=== PATIENT | male | born 1955 | race Caucasian/White ===

== ENCOUNTER → 2016-11-20 | Outpatient (CLI) | payer MEDICAID ==
[2016-11-20 07:54] LABS: Basophils # (A) 0.1 k/uL (0-0.2); Basophils % (A) 2 %; CH 34.7; CHCM 33.1; Eosinophils # (A) 0.2 k/uL (0-0.7); Eosinophils % (A) 3 %; HCT 49.7 % (39.0-53.0); HDW 2.03; Luc # (Auto) 0.21; Luc % (Auto) 4; Lymphocytes # (A) 1.9 k/uL (1.0-4.8); Lymphocytes % (A) 35 %; MCHC 32.3 g/dL (31.0-37.0); MCV 105.3 fL (80.0-100.0); Macrocytosis Moderate; Mean Platelet Volume 8.3; Monocytes # (A) 0.5 k/uL (0-1.0); Monocytes % (A) 9 %; Neutrophils # (A) 2.6 k/uL (1.3-7.7); Neutrophils % (A) 47 %; RBC 4.72 m/uL (4.30-5.90); RDW 13.4 % (11.5-15.5); WBC 5.5 k/uL (3.8-10.6); WBC (Perox) 5.42
[2016-11-20 11:11] LABS: ALT 49 U/L (21-72); AST 39 U/L (17-59); Alkaline Phosphatase 34 U/L (38-126); Anion Gap 9 mmol/L; Blood Urea Nitrogen 9 mg/dL (9-20); Carbon Dioxide 31 mmol/L (22-30); Chloride 107 mmol/L (98-107); Cholesterol 196 mg/dL (<200); Glucose 97 mg/dL (74-99); HDL Cholesterol 52 mg/dL (40-60); Non-African American GFR(MDRD) >60 (>60 ml/min/1.73 sqM); Potassium 4.9 mmol/L (3.5-5.1); Sodium 147 mmol/L (137-145); Total Bilirubin 0.4 mg/dL (0.2-1.3); Total Protein 7.3 g/dL (6.3-8.2); Triglycerides 166 mg/dL (<150)
== END | disposition home or self-care (01) ==
LOC: LABWHC1 07:05
PROVIDERS: ATTEND Internal Medicine
DX: E78.5 Hyperlipidemia, unspecified (principal)
CPT/HCPCS: 84439; 80061; 80053; 84443; 85025; 36415; G0103

== ENCOUNTER 2017-05-29 18:52 | Inpatient (IN) | payer MEDICAID ==
--- NOTE | 2017-05-29 19:13 | ED ---
Chest Pain HPI - General Chief Complaint: Chest Pain Stated Complaint: Chest Pain Source: patient, family Mode of arrival: wheelchair Limitations: no limitations - History of Present Illness Initial Comments: This patient is 61-year-old man with history of COPD and recent pneumonia, who presents to be evaluated for intermittent chest pains and dyspnea. History comes from both the patient and his . The patient was treated for pneumonia approximately 2 weeks ago with a course of azithromycin, and he is also currently taking inhaled medications and approximate 20 mg of prednisone per day for his COPD. Over the past few days he has had intermittent substernal chest pains and he states today it was worse and radiating to his left upper extremity. The patient describes as a tightness and states it feels like his COPD, but he is not able to further characterize it well. He did take an albuterol treatment but states she is not feeling significantly better. He has not found other worsening or relieving factors. He also notes that he has developed increasing swelling of the bilateral lower extremities over the past few days. He is dyspneic and he has had some diaphoresis this evening. MD Complaint: chest pain -: days(s) Onset: during rest Pain Location: substernal Pain Radiation: LUE Severity: moderate Quality: tightness Consistency: intermittent Improves With: medication-other (Albuterol) Anginal Symptoms: diaphoresis, dyspnea Other Symptoms: cough - Related Data Home Medications Medication Instructions Recorded Confirmed Tamsulosin HCl [Tamsulosin HCl] 0.4 mg PO DAILY@1800 06/25/14 05/29/17 valACYclovir HCL [valACYclovir] 1,000 mg PO DAILY 06/25/14 05/29/17 Aspirin EC [Ecotrin Low Dose] 81 mg PO DAILY 05/29/17 05/29/17 Budesonide/Formoterol Fumarate 2 puff INHALATION RT-BID 05/29/17 05/29/17 [Symbicort 160-4.5 Mcg Inhaler] Ibuprofen [Motrin] 800 mg PO Q6HR PRN 05/29/17 05/29/17 Ipratropium-Albuterol Nebulize 3 ml INHALATION RT-Q4H PRN 05/29/17 05/29/17 [Duoneb 0.5 mg-3 mg/3 ml Soln] Montelukast [Singulair] 10 mg PO DAILY 05/29/17 05/29/17 predniSONE 20 mg PO DIRECTED PRN 05/29/17 05/29/17 Allergies Allergy/AdvReac Type Severity Reaction Status Date / Time bee stings Allergy Anaphylaxis Uncoded 05/29/17 23:17 Review of Systems ROS Statement: Those systems with pertinent positive or pertinent negative responses have been documented in the HPI. ROS Other: All systems not noted in ROS Statement are negative. Constitutional: Denies: fever, chills Respiratory: Reports: cough, dyspnea, wheezes Cardiovascular: Reports: chest pain, dyspnea on exertion, orthopnea, edema. Denies: syncope Gastrointestinal: Reports: other (Bloating). Denies: abdominal pain, nausea, vomiting, melena, hematochezia Genitourinary: Denies: dysuria, hematuria Musculoskeletal: Denies: back pain Skin: Denies: rash Neurological: Denies: headache, weakness, numbness Hematological/Lymphatic: Reports: other ("Factor V disorder"). Denies: easy bleeding EKG Findings - EKG Results: EKG: interpreted by DENIZ ROSA, sinus rhythm (Rate 68 bpm), normal axis, normal QRS, normal ST/T, no acute changes Past Medical History Past Medical History: Asthma, Blood Disorder, COPD, GERD/Reflux, Prostate Disorder Additional Past Medical History / Comment(s): factor 5 History of Any Multi-Drug Resistant Organisms: None Reported Past Surgical History: Orthopedic Surgery Past Psychological History: Depression Smoking Status: Current every day smoker Past Alcohol Use History: Abuse, Daily Past Drug Use History: None Reported General Exam Limitations: no limitations General appearance: in distress (Mild respiratory distress), obese Head exam: Present: atraumatic, normocephalic Eye exam: Present: normal appearance Respiratory exam: Present: respiratory distress (Mild tachypnea), wheezes. Absent: rales, rhonchi, stridor, accessory muscle use, decreased breath sounds Cardiovascular Exam: Present: regular rate, normal rhythm, normal heart sounds. Absent: systolic murmur, diastolic murmur, rubs, gallop GI/Abdominal exam: Present: soft. Absent: distended, tenderness, guarding, rebound, mass, pulsatile mass Extremities exam: Present: normal inspection, normal capillary refill, pedal edema (Patient has pitting edema to the mid tibial area bilaterally no calf tenderness or palpable cord. No Homans sign.). Absent: calf tenderness Back exam: Present: normal inspection. Absent: CVA tenderness (R), CVA tenderness (L) Neurological exam: Present: alert Skin exam: Present: warm, intact, normal color, diaphoretic (Mild). Absent: rash Course Vital Signs 05/29/17 05/29/17 05/29/17 18:56 19:51 19:56 Temperature 97.3 F L Pulse Rate 69 68 88 Pulse Rate [ Pulse Oximetery ] Respiratory 26 H 20 Rate Blood Pressure 191/88 153/74 Blood Pressure [Right Arm] O2 Sat by Pulse 92 L 98 Oximetry 05/29/17 05/29/17 05/29/17 20:06 20:46 21:20 Temperature Pulse Rate 88 85 Pulse Rate [ Pulse Oximetery ] Respiratory 18 Rate Blood Pressure 155/84 Blood Pressure [Right Arm] O2 Sat by Pulse 94 L 97 Oximetry 05/29/17 05/29/17 21:43 22:00 Temperature 97.2 F L 98.7 F Pulse Rate 79 Pulse Rate [ 83 Pulse Oximetery ] Respiratory 22 18 Rate Blood Pressure 146/85 Blood Pressure 141/83 [Right Arm] O2 Sat by Pulse 97 98 Oximetry Chest Pain MDM - MDM This patient is a 61-year-old man who is having dyspnea and chest pains. He is found to have a minimally elevated d-dimer, but he was not able to lie flat to tolerate the computed tomography scan. The patient does relate that he has not been able to sleep in a supine position for a year now, so this is not exactly new for him. We will admit the patient for further evaluation and treatment, including VQ scan. The patient is covered in the interim with Lovenox. Attempted to treat patient with levofloxacin but patient states had bilateral Achilles rupture with this medication the past. There is also question of penicillin reaction limiting Zosyn. Critical Care Time Critical Care Time: Yes (35 minutes) Disposition Clinical Impression: Chest pain, COPD exacerbation, Pneumonia, Elevated d-dimer Disposition: ADMITTED IP TO THIS HOSP Condition: Fair
[2017-05-29] MEDS ORDERED: IPRATROPIUM-ALBUTEROL 3 ML NEB INHALATION STA (19:19)
[2017-05-29] MEDS ORDERED: NITROGLYCERIN OINT 1 INCH/GM PACKET TOPICAL STA (19:20)
[2017-05-29] MEDS ORDERED: ASPIRIN 81 MG PO STA (19:21)
[2017-05-29 19:36] LABS: Basophils % (A) 1 %; CHCM 34.3; Eosinophils # (A) 0.1 k/uL (0-0.7); Eosinophils % (A) 1 %; HCT 49.1 % (39.0-53.0); HGB 16.4 gm/dL (13.0-17.5); Luc % (Auto) 2; Lymphocytes # (A) 0.7 k/uL (1.0-4.8); Lymphocytes % (A) 10 %; MCH 35.3 pg (25.0-35.0); MCHC 33.4 g/dL (31.0-37.0); MCV 105.5 fL (80.0-100.0); Macrocytosis Moderate; Mean Platelet Volume 8.5; Monocytes # (A) 0.4 k/uL (0-1.0); Monocytes % (A) 6 %; Neutrophils # (A) 5.4 k/uL (1.3-7.7); Neutrophils % (A) 82 %; RBC 4.65 m/uL (4.30-5.90); RDW 14.6 % (11.5-15.5); WBC 6.7 k/uL (3.8-10.6); WBC (Perox) 6.53
--- NOTE | 2017-05-29 19:48 | XR ---
EXAMINATION TYPE: XR chest 2V DATE OF EXAM: 05/29/2017 COMPARISON: 11/19/2016 HISTORY: Chest pain TECHNIQUE: Frontal and lateral views of the chest are obtained. FINDINGS: There is linear density in the right midlung. There is no heart failure. There is no sign of pleural effusion. There is also mild linear density at the left lung base. IMPRESSION: There is mild infiltrate and atelectasis in the right middle lobe and left lower lobe th at is mostly new compared to old exam. Normal heart.
[2017-05-29 19:56] LABS: ALT 55 U/L (21-72); AST 67 U/L (17-59); Alkaline Phosphatase 52 U/L (38-126); Anion Gap 12 mmol/L; Blood Urea Nitrogen 5 mg/dL (9-20); Calcium 9.4 mg/dL (8.4-10.2); Carbon Dioxide 22 mmol/L (22-30); Chloride 104 mmol/L (98-107); Glucose 109 mg/dL (74-99); Magnesium 1.8 mg/dL (1.6-2.3); Non-African American GFR(MDRD) >60 (>60 ml/min/1.73 sqM); Potassium 3.9 mmol/L (3.5-5.1); Sodium 138 mmol/L (137-145); Total Bilirubin 1.3 mg/dL (0.2-1.3); Total Protein 7.5 g/dL (6.3-8.2)
[2017-05-29] MEDS ORDERED: LEVOFLOXACIN 750MG-D5W PMX 750 MG in DEXTROSE/WATER 1 150ML.BAG IVPB STA (20:00)
[2017-05-29 20:07] LABS: Partial Thromboplastin Time 25.6 sec (22.0-30.0); Prothrombin Time 10.4 sec (9.0-12.0)
[2017-05-29] MEDS ORDERED: RX INFO: IV CONTRAST WAS GIVEN 1 EACH MISC MISCELLANE PRN (20:58)
[2017-05-29] MEDS ORDERED: PNEUMONIA PROTOCOL UTILIZED 1 EACH MISC PO PRN (21:20)
[2017-05-29] MEDS ORDERED: ALBUTEROL NEBULIZED 2.5 MG/3 ML INHALATION PRN (21:20)
[2017-05-29] MEDS ORDERED: ENOXAPARIN 150 MG/ML SYRINGE SQ STA (21:25)
[2017-05-29 22:40] VITALS: BMI 35.4
[2017-05-29] MEDS ORDERED: MORPHINE SULFATE 4 MG/ML SYRINGE IVP PRN (22:42)
[2017-05-29] MEDS ORDERED: ACETAMINOPHEN TAB 325 MG TAB PO PRN (22:43)
[2017-05-29] MEDS: SODIUM CHLORIDE 0.9% 1,000 ML IV SCH (23:04)
[2017-05-29] MEDS: AZITHROMYCIN 500 MG TAB PO SCH (23:04)
[2017-05-29] MEDS: ALPRAZolam 0.25 MG TAB PO PRN (23:05)
[2017-05-30] MEDS: IPRATROPIUM-ALBUTEROL 3 ML NEB INHALATION SCH ×4 (08:14→20:32)
[2017-05-30] MEDS: ENOXAPARIN 150 MG/ML SYRINGE SQ SCH ×2 (09:25→20:13)
--- NOTE | 2017-05-30 12:58 | P.CRDCN ---
History of Present Illness Consult date: 05/30/17 Reason for Consult (text): chest pain Chief complaint: shortness of breath, cough History of present illness: This is a pleasant 61-year-old gentleman with a history of COPD, smoking and recent pneumonia for which he was treated in a walk-in clinic with antibiotics and steroids. He does have a family history of a grandfather with coronary artery disease in his early 50s. Presented to the emergency department with complaints of increasing shortness of breath, cough, chest pain with coughing. He has also noticed some lower extremity edema at times. EKG shows normal sinus rhythm without ST-T wave abnormalities. Chest x-ray showed mild infiltrate and atelectasis in the right middle lobe and left lower lobe. Laboratory values showed troponin less than 0.0123, d-dimer 0.82 and a BNP of 128. He did have V/Q and a CT of the chest ordered that were unable to be completed due to his inability to lay flat due to shortness of breath. Upon examination, patient is resting comfortably in bed his head of bed is up. He continues to complain of shortness of breath and cough denies complaints of chest discomfort. Denies complaints of palpitations, dizziness or syncope. Past Medical History Past Medical History: Asthma, Blood Disorder, COPD, GERD/Reflux, Prostate Disorder Additional Past Medical History / Comment(s): factor 5 History of Any Multi-Drug Resistant Organisms: None Reported Past Surgical History: Orthopedic Surgery Additional Past Surgical History / Comment(s): Achilles x2, Past Anesthesia/Blood Transfusion Reactions: No Reported Reaction Past Psychological History: Depression Smoking Status: Current every day smoker Past Alcohol Use History: Abuse, Daily Past Drug Use History: None Reported Medications and Allergies Home Medications Medication Instructions Recorded Confirmed Type Tamsulosin HCl [Tamsulosin HCl] 0.4 mg PO DAILY@1800 06/25/14 05/29/17 History valACYclovir HCL [valACYclovir] 1,000 mg PO DAILY 06/25/14 05/29/17 History Aspirin EC [Ecotrin Low Dose] 81 mg PO DAILY 05/29/17 05/29/17 History Budesonide/Formoterol Fumarate 2 puff INHALATION RT-BID 05/29/17 05/29/17 History [Symbicort 160-4.5 Mcg Inhaler] Ibuprofen [Motrin] 800 mg PO Q6HR PRN 05/29/17 05/29/17 History Ipratropium-Albuterol Nebulize 3 ml INHALATION RT-Q4H PRN 05/29/17 05/29/17 History [Duoneb 0.5 mg-3 mg/3 ml Soln] Montelukast [Singulair] 10 mg PO DAILY 05/29/17 05/29/17 History predniSONE 20 mg PO DIRECTED PRN 05/29/17 05/29/17 History Allergies Allergy/AdvReac Type Severity Reaction Status Date / Time bee stings Allergy Anaphylaxis Uncoded 05/29/17 23:17 Physical Exam Vitals: Vital Signs Temp Pulse Pulse Resp BP BP Pulse Ox 05/30/17 12:00 79 18 155/87 95 05/30/17 11:29 72 05/30/17 11:16 65 05/30/17 08:26 86 05/30/17 08:17 80 96 05/30/17 08:00 97 F L 73 21 153/89 95 05/30/17 04:00 97.7 F 80 20 153/78 96 05/30/17 03:11 78 05/30/17 03:01 74 05/30/17 00:00 97.2 F L 84 20 141/83 97 05/29/17 22:06 98.7 F 79 18 146/85 98 05/29/17 22:00 98.7 F 79 18 146/85 98 05/29/17 21:43 97.2 F L 83 22 141/83 97 05/29/17 21:20 97 05/29/17 20:46 85 18 155/84 94 L 05/29/17 20:06 88 05/29/17 19:56 88 05/29/17 19:51 68 20 153/74 98 05/29/17 18:56 97.3 F L 69 26 H 191/88 92 L Intake and Output 05/29/17 05/30/17 05/30/17 22:59 06:59 14:59 Intake Total 240 760 Balance 240 760 Intake: Intake, IV Titration 160 Amount Sodium Chloride 0.9% 1, 160 000 ml @ 20 mls/hr IV . Q24H [facility] Rx#:[id number] Oral 240 600 Other: Voiding Method Toilet Urinal # Voids 1 1 # Bowel Movements 1 1 Weight 142.882 kg 147.8 kg PHYSICAL EXAMINATION: HEENT: Head is atraumatic, normocephalic. Pupils equal, round. Neck is supple. There is no elevated jugular venous pressure. HEART EXAMINATION: Heart sounds regular, S1 and S2 normal. No murmur or gallop heard. CHEST EXAMINATION: Lungs reveal diminished air entry with scattered rhonchi that clear with cough. No chest wall tenderness is noted on palpation or with deep breathing. ABDOMEN: Soft, nontender. Bowel sounds are heard. No organomegaly noted. EXTREMITIES: 2+ peripheral pulses with no evidence of peripheral edema and no calf tenderness noted. NEUROLOGIC patient is awake, alert and oriented x3. . Results 05/29/17 19:00 05/29/17 19:00 Cardiac Enzymes 05/29/17 05/29/17 05/30/17 Range/Units 19:00 19:00 04:11 AST 67 H (17-59) U/L Troponin I <0.012 <0.012 (0.000-0.034) ng/mL 05/30/17 Range/Units 10:33 AST (17-59) U/L Troponin I <0.012 (0.000-0.034) ng/mL Coagulation 05/29/17 Range/Units 19:00 PT 10.4 (9.0-12.0) sec APTT 25.6 (22.0-30.0) sec CBC 05/29/17 Range/Units 19:00 WBC 6.7 (3.8-10.6) k/uL RBC 4.65 (4.30-5.90) m/uL Hgb 16.4 (13.0-17.5) gm/dL Hct 49.1 (39.0-53.0) % Plt Count 161 (150-450) k/uL Comprehensive Metabolic Panel 05/29/17 Range/Units 19:00 Sodium 138 (137-145) mmol/L Potassium 3.9 (3.5-5.1) mmol/L Chloride 104 (98-107) mmol/L Carbon Dioxide 22 (22-30) mmol/L BUN 5 L (9-20) mg/dL Creatinine 0.50 L (0.66-1.25) mg/dL Glucose 109 H (74-99) mg/dL Calcium 9.4 (8.4-10.2) mg/dL AST 67 H (17-59) U/L ALT 55 (21-72) U/L Alkaline Phosphatase 52 (38-126) U/L Total Protein 7.5 (6.3-8.2) g/dL Albumin 4.4 (3.5-5.0) g/dL Current Medications Generic Name Dose Route Start Last Admin Trade Name Freq PRN Reason Stop Dose Admin Acetaminophen 650 mg 05/29/17 22:43 Tylenol Tab PO Q6HR PRN Mild to Moderate Pain Albuterol Sulfate 2.5 mg 05/29/17 21:20 05/30/17 03:01 Ventolin Nebulized INHALATION 2.5 mg RT-Q4H PRN Administration Shortness Of Breath Or Wheezing Albuterol/Ipratropium 3 ml 05/30/17 08:00 05/30/17 11:15 Duoneb 0.5 Mg-3 Mg/3 Ml Soln INHALATION 3 ml RT-QID JONA Administration Alprazolam 0.25 mg 05/29/17 22:41 05/29/17 23:05 Xanax PO 0.25 mg Q6H PRN Administration Anxiety Azithromycin 500 mg 05/29/17 22:15 05/29/17 23:04 Zithromax PO 500 mg HS JONA Administration Enoxaparin Sodium 140 mg 05/30/17 09:00 05/30/17 09:25 Lovenox SQ 140 mg Q12HR JONA Administration Ceftriaxone Sodium 1,000 mg/ 50 mls @ 100 mls/hr 05/30/17 12:00 Sodium Chloride IVPB 06/02/17 14:00 Q24HR@1200 JONA Sodium Chloride 1,000 mls @ 20 mls/hr 05/29/17 21:30 05/29/17 23:04 Saline 0.9% IV 20 mls/hr .Q24H JONA Administration Miscellaneous Information 1 each 05/29/17 20:58 Rx Info: Iv Contrast Was Given MISCELLANE 05/31/17 20:58 DAILY PRN Per Protocol Miscellaneous Information 1 each 05/29/17 21:20 Pneumonia Protocol Utilized PO ONCE PRN Per Protocol Morphine Sulfate 4 mg 05/29/17 22:42 Morphine Sulfate (Inj) IVP Q4HR PRN Moderate to Severe Pain Intake and Output 05/29/17 05/30/17 05/30/17 22:59 06:59 14:59 Intake Total 240 760 Balance 240 760 Intake: Intake, IV Titration 160 Amount Sodium Chloride 0.9% 1, 160 000 ml @ 20 mls/hr IV . Q24H [facility] Rx#:[id number] Oral 240 600 Other: Voiding Method Toilet Urinal # Voids 1 1 # Bowel Movements 1 1 Weight 142.882 kg 147.8 kg 05/29/17 19:00 05/29/17 19:00 EKG Interpretations (text) Sinus rhythm Assessment and Plan Plan: Assessment and plan #1 COPD with recent pneumonia #2 nicotine dependence #3 chest pain with coughing #4 lower extremity edema #5 family history of coronary artery disease From cardiology perspective, we'll obtain a 2-D echo with Doppler patient's symptoms are likely pulmonary in origin. Due to his family history and risk factors of being a current smoker we will likely schedule the patient for an outpatient stress test to be done later date once his respiratory status has improved. We will continue to follow the patient with you during this admission and provide further recommendations accordingly. INSULATION HOSEMAN note has been reviewed, I agree with a documented findings and plan of care. Patient was seen and examined.
--- NOTE | 2017-05-30 13:14 | P.CNPUL ---
History of Present Illness Consult date: 05/30/17 Reason for consult: dyspnea, COPD History of present illness: A 61-year-old male patient with known history of bronchial asthma and COPD who presented to the hospital yesterday because of worsening shortness of breath, chest tightness and wheezing and he has failed outpatient treatment. The patient symptoms started approximately 3 weeks ago and he went to a walk-in clinic where he was given diagnosis of pneumonia and he was given a combination of antibiotics and steroids. He improved over her condition progressively got worse and he came into the hospital for the same symptoms of increased dyspnea chest tightness and wheezing. No angina. No pleurisy. No hemoptysis. Some edema in his lower extremities bilaterally. His BNP level was nonelevated. Troponin 2 has been negative. D-dimer was negative. His chest x-ray shows some limited atelectatic changes in the right midlung area and some atelectasis in the left lower lobe area. Cardiac structures were within normal limits. He is feeling better. He is currently on a combination of DuoNeb neb last treatment [id number], oral Zithromax, IV Rocephin. He needs to be started also on IV Solu Medrol. He was given Lovenox therapeutic dose 140 mg subcu every 12 hours. I think this was initiated due to concern of pulmonary embolism. Note that this patient was on Advair in the past. During a recent urgent care visitation the patient was switched to Symbicort. He has pro-air which hardly uses at home. His albuterol neb last 2 minutes use on an as- needed basis. He smokes one pack of cigarette a day and complications 45-pack- year smoking history. He is father of complications of pulmonary fibrosis. No previous history of DVT or pulmonary embolism. No other complaints otherwise for now. Review of Systems Constitutional: Reports weight gain Eyes: denies blurred vision, denies bulging eye, denies decreased vision Ears: deny: decreased hearing, ear discharge, earache, tinnitus Ears, nose, mouth and throat: Denies headache, Denies sore throat Cardiovascular: Reports decreased exercise tolerance, Reports dyspnea on exertion, Reports shortness of breath Respiratory: Reports dyspnea, Reports wheezing Gastrointestinal: Denies abdominal pain, Denies diarrhea, Denies nausea, Denies vomiting Genitourinary: Reports as per HPI Musculoskeletal: Reports as per HPI Musculoskeletal: absent: ankle pain, ankle stiffness, ankle swelling, as per HPI Integumentary: Denies pruritus, Denies rash Neurological: Denies numbness, Denies weakness Psychiatric: Denies anxiety, Denies depression Endocrine: Denies fatigue, Denies weight change Past Medical History Past Medical History: Asthma, Blood Disorder, COPD, GERD/Reflux, Prostate Disorder Additional Past Medical History / Comment(s): factor 5 Leyden, COPD, asthma, BPH , obesity History of Any Multi-Drug Resistant Organisms: None Reported Past Surgical History: Orthopedic Surgery Additional Past Surgical History / Comment(s): Achilles x2, bilateral knee surgery, better shoulder surgery, right inguinal hernia repair Past Anesthesia/Blood Transfusion Reactions: No Reported Reaction Past Psychological History: Depression Smoking Status: Current every day smoker Past Alcohol Use History: Abuse, Daily Past Drug Use History: None Reported Medications and Allergies Home Medications Medication Instructions Recorded Confirmed Type Tamsulosin HCl [Tamsulosin HCl] 0.4 mg PO DAILY@1800 06/25/14 05/29/17 History valACYclovir HCL [valACYclovir] 1,000 mg PO DAILY 06/25/14 05/29/17 History Aspirin EC [Ecotrin Low Dose] 81 mg PO DAILY 05/29/17 05/29/17 History Budesonide/Formoterol Fumarate 2 puff INHALATION RT-BID 05/29/17 05/29/17 History [Symbicort 160-4.5 Mcg Inhaler] Ibuprofen [Motrin] 800 mg PO Q6HR PRN 05/29/17 05/29/17 History Ipratropium-Albuterol Nebulize 3 ml INHALATION RT-Q4H PRN 05/29/17 05/29/17 History [Duoneb 0.5 mg-3 mg/3 ml Soln] Montelukast [Singulair] 10 mg PO DAILY 05/29/17 05/29/17 History predniSONE 20 mg PO DIRECTED PRN 05/29/17 05/29/17 History Allergies Allergy/AdvReac Type Severity Reaction Status Date / Time bee stings Allergy Anaphylaxis Uncoded 05/29/17 23:17 Physical Exam Vitals: Vital Signs Temp Pulse Pulse Resp BP BP Pulse Ox 05/30/17 12:00 79 18 155/87 95 05/30/17 11:29 72 05/30/17 11:16 65 05/30/17 08:26 86 05/30/17 08:17 80 96 05/30/17 08:00 97 F L 73 21 153/89 95 05/30/17 04:00 97.7 F 80 20 153/78 96 05/30/17 03:11 78 05/30/17 03:01 74 05/30/17 00:00 97.2 F L 84 20 141/83 97 05/29/17 22:06 98.7 F 79 18 146/85 98 05/29/17 22:00 98.7 F 79 18 146/85 98 05/29/17 21:43 97.2 F L 83 22 141/83 97 05/29/17 21:20 97 05/29/17 20:46 85 18 155/84 94 L 05/29/17 20:06 88 05/29/17 19:56 88 05/29/17 19:51 68 20 153/74 98 05/29/17 18:56 97.3 F L 69 26 H 191/88 92 L Intake and Output 05/29/17 05/30/17 05/30/17 22:59 06:59 14:59 Intake Total 240 760 Balance 240 760 Intake: Intake, IV Titration 160 Amount Sodium Chloride 0.9% 1, 160 000 ml @ 20 mls/hr IV . Q24H [facility] Rx#:[id number] Oral 240 600 Other: Voiding Method Toilet Urinal # Voids 1 1 # Bowel Movements 1 1 Weight 142.882 kg 147.8 kg Head exam was generally normal. There was no scleral icterus or corneal arcus. Mucous membranes were moist. Neck is short and supple and the patient is a Mallampati class IV. No goiter neck masses. Lungs sounds are diminished and there is scattered expiratory wheezes throughout the lung holley bilaterally.Cardiac exam revealed the PMI to be normally situated and sized. The rhythm was regular and no extrasystoles were noted during several minutes of auscultation. The first and second heart sounds were normal and physiologic splitting of the second heart sound was noted. There were no murmurs, rubs, clicks, or gallops. Abdomen soft nontender. No organomegaly. No direct tenderness rebound tensile guarding. Extremities show ankle edema bilaterally otherwise no leg edema. No cyanosis or clubbing at this point. Neurologically is awake 3 and there is no focal neurological deficits. Results - Laboratory Findings CBC and BMP: 05/29/17 19:00 05/29/17 19:00 PT/INR, D-dimer PT 10.4 sec (9.0-12.0) 05/29/17 19:00 INR 1.0 (<1.2) 05/29/17 19:00 D-Dimer 0.82 mg/L FEU (<0.60) H 05/29/17 19:00 Abnormal lab findings: Abnormal Labs 05/29/17 05/29/17 05/29/17 19:00 19:00 19:00 MCV 105.5 H MCH 35.3 H Lymphocytes # 0.7 L D-Dimer 0.82 H BUN 5 L Creatinine 0.50 L Glucose 109 H AST 67 H - Diagnostic Findings Chest x-ray: image reviewed Assessment and Plan Plan: Assessment 1 dyspnea on the basis of an acute COPD exacerbation. There may be an underlying asthmatic disease in addition. Chest x-ray showing atelectatic changes in the right midlung in the left lower lobe. CT angios the chest will be done to rule out pulmonary embolism especially with his history of factor V Leyden. 2 obesity 3 smoker 4 BPH 5 limited edema of the lower extremities. Plan continue DuoNeb nebulized treatments [id number]. Continue Zithromax. 2 and IV Rocephin. IV Solu-Medrol. CT angios the chest. We'll continue to follow. Will drop the Lovenox prophylactic dose if the CT angios the chest is negative for pulmonary embolism.
[2017-05-30] MEDS ORDERED: methylPREDNISolone SOD SUCCI 125 MG/2 ML VIAL IV SCH (13:15)
[2017-05-30] MEDS: IBUPROFEN 400 MG TAB PO PRN ×2 (14:26→20:22)
[2017-05-30] MEDS: valACYclovir HCL 1,000 MG TABLET PO SCH (14:27)
[2017-05-30] MEDS: MONTELUKAST 10 MG TAB PO SCH (14:27)
[2017-05-30] MEDS: ASPIRIN 81 MG PO SCH (14:27)
--- NOTE | 2017-05-30 16:55 | US ---
EXAMINATION TYPE: US venous doppler duplex LE BI DATE OF EXAM: 05/30/2017 3:19 PM COMPARISON: NONE CLINICAL HISTORY: 61-year-old male elevated d-dimer. Shortness of breath, factor 5 clotting disorder per patient SIDE PERFORMED: Bilateral TECHNIQUE: The lower extremity deep venous system is examined utilizing real time linear array sonog angy with graded compression, doppler sonography and color-flow sonography. FINDINGS: VESSELS IMAGED: External Iliac Vein (EIV) Common Femoral Vein Deep Femoral Vein Greater Saphenous Vein * Femoral Vein Popliteal Vein Proximal Calf Veins Posterior tibial veins (* superficial vessels) Right Leg: Negative for DVT Left Leg: Negative for DVT IMPRESSION: No evidence for DVT within the bilateral lower extremities.
--- NOTE | 2017-05-30 16:56 | P.HPIM ---
History of Present Illness 61-year-old gentleman came in with comments of shortness of breath has been going on for about 3-4 days patient has seemed patient was recently treated for pneumonia. Patient still has some residual infiltrate from his previous pneumonia although patient denied any fever chills. When I examined the patient patient lungs are clear apparently patient was wheezing and his breathing treatment. And the patient has mildly elevated d-dimer and patient does have history of factor V Leyden deficiency and he was told he doesn't need any anticoagulation. Because of mildly elevated d-dimer and shortness of breath along with some tachycardia and patient also had some chest pain which worsens with cough, no one rule out pulmonary embolism but patient is unable to flat, because of which we're unable gotten a CAT scan of the chest. Patient is undergoing bilateral lower limb Doppler along with echocardiogram if they're negative patient's anti-coagulation dose of Lovenox will be switched to prophylactic dose of Lovenox. Patient shortness of breath she significantly improved patient doesn't use any onset at home. Patient does not appear to have any new pneumonia at this point of time although patient is on broad- spectrum antibiotics treating for pneumonia and pulmonology recommended continuing those medications until we get the whole picture. Has [id number] history of smoking quit smoking about a week ago. Review of Systems REVIEW OF SYSTEMS: CONSTITUTIONAL: No fever, no malaise, no fatigue. HEENT: No recent visual problems or hearing problems. Denied any sore throat. CARDIOVASCULAR: No chest pain, orthopnea, PND, no palpitations, no syncope. PULMONARY: As mentioned in HPI GASTROINTESTINAL: No diarrhea, no nausea, no vomiting, no abdominal pain. Normoactive bowel sounds. NEUROLOGICAL: No headaches, no weakness, no numbness. HEMATOLOGICAL: Denies any bleeding or petechiae. GENITOURINARY: Denies any burning micturition, frequency, or urgency. MUSCULOSKELETAL/RHEUMATOLOGICAL: Denies any joint pain, swelling, or any muscle pain. ENDOCRINE: Denies any polyuria or polydipsia. The rest of the 14-point review of systems is negative. Past Medical History Past Medical History: Asthma, Blood Disorder, COPD, GERD/Reflux, Prostate Disorder Additional Past Medical History / Comment(s): factor 5 Leyden, COPD, asthma, BPH , obesity History of Any Multi-Drug Resistant Organisms: None Reported Past Surgical History: Orthopedic Surgery Additional Past Surgical History / Comment(s): Achilles x2, bilateral knee surgery, better shoulder surgery, right inguinal hernia repair Past Anesthesia/Blood Transfusion Reactions: No Reported Reaction Past Psychological History: Depression Smoking Status: Current every day smoker Past Alcohol Use History: Abuse, Daily Past Drug Use History: None Reported Medications and Allergies Home Medications Medication Instructions Recorded Confirmed Type Tamsulosin HCl [Tamsulosin HCl] 0.4 mg PO DAILY@1800 06/25/14 05/29/17 History valACYclovir HCL [valACYclovir] 1,000 mg PO DAILY 06/25/14 05/29/17 History Aspirin EC [Ecotrin Low Dose] 81 mg PO DAILY 05/29/17 05/29/17 History Budesonide/Formoterol Fumarate 2 puff INHALATION RT-BID 05/29/17 05/29/17 History [Symbicort 160-4.5 Mcg Inhaler] Ibuprofen [Motrin] 800 mg PO Q6HR PRN 05/29/17 05/29/17 History Ipratropium-Albuterol Nebulize 3 ml INHALATION RT-Q4H PRN 05/29/17 05/29/17 History [Duoneb 0.5 mg-3 mg/3 ml Soln] Montelukast [Singulair] 10 mg PO DAILY 05/29/17 05/29/17 History predniSONE 20 mg PO DIRECTED PRN 05/29/17 05/29/17 History Allergies Allergy/AdvReac Type Severity Reaction Status Date / Time bee stings Allergy Anaphylaxis Uncoded 05/29/17 23:17 Physical Exam Vitals: Vital Signs Temp Pulse Pulse Resp BP BP Pulse Ox 05/30/17 16:04 76 05/30/17 15:54 74 05/30/17 12:00 79 18 155/87 95 05/30/17 11:29 72 05/30/17 11:16 65 05/30/17 08:26 86 05/30/17 08:17 80 96 05/30/17 08:00 97 F L 73 21 153/89 95 05/30/17 04:00 97.7 F 80 20 153/78 96 05/30/17 03:11 78 05/30/17 03:01 74 05/30/17 00:00 97.2 F L 84 20 141/83 97 05/29/17 22:06 98.7 F 79 18 146/85 98 05/29/17 22:00 98.7 F 79 18 146/85 98 05/29/17 21:43 97.2 F L 83 22 141/83 97 05/29/17 21:20 97 05/29/17 20:46 85 18 155/84 94 L 05/29/17 20:06 88 05/29/17 19:56 88 05/29/17 19:51 68 20 153/74 98 05/29/17 18:56 97.3 F L 69 26 H 191/88 92 L Intake and Output 05/30/17 05/30/17 05/30/17 06:59 14:59 22:59 Intake Total 760 Balance 760 Intake: Intake, IV Titration 160 Amount Sodium Chloride 0.9% 1, 160 000 ml @ 20 mls/hr IV . Q24H [facility] Rx#:[id number] Oral 600 Other: Voiding Method Toilet Urinal # Voids 1 2 # Bowel Movements 1 Weight 147.8 kg PHYSICAL EXAMINATION: GENERAL: The patient is alert and oriented x3, not in any acute distress. Well developed, well nourished. Obese HEENT: Pupils are round and equally reacting to light. EOMI. No scleral icterus. No conjunctival pallor. Normocephalic, atraumatic. No pharyngeal erythema. No thyromegaly. CARDIOVASCULAR: S1 and S2 present. No murmurs, rubs, or gallops. PULMONARY: Chest is clear to auscultation, no wheezing or crackles. ABDOMEN: Soft, nontender, nondistended, normoactive bowel sounds. No palpable organomegaly. MUSCULOSKELETAL: No joint swelling or deformity. EXTREMITIES: No cyanosis, clubbing, or pedal edema. NEUROLOGICAL: Gross neurological examination did not reveal any focal deficits. SKIN: No rashes. Results CBC & Chem 7: 05/29/17 19:00 05/29/17 19:00 Labs: Abnormal Lab Results - Last 24 Hours (Table) 05/29/17 05/29/17 05/29/17 Range/Units 19:00 19:00 19:00 MCV 105.5 H (80.0-100.0) fL MCH 35.3 H (25.0-35.0) pg Lymphocytes # 0.7 L (1.0-4.8) k/uL D-Dimer 0.82 H (<0.60) mg/L FEU BUN 5 L (9-20) mg/dL Creatinine 0.50 L (0.66-1.25) mg/dL Glucose 109 H (74-99) mg/dL AST 67 H (17-59) U/L Microbiology - Last 24 Hours (Table) 05/29/17 23:48 Gram Stain - Preliminary Sputum Thrombosis Risk Factor Assmnt - Choose All That Apply Any of the Below Risk Factors Present?: Yes Each Factor Represents 1 point: Abnormal pulmonary function (COPD), Age 41-60 years, Obesity (BMI >25), Serious lung disease incl. pneumonia (< 1month), Swollen legs (current) Other Risk Factors: Yes Each Risk Factor Represents 3 Points: Positive Factor V Leiden, History of DVT/ PE Thrombosis Risk Factor Assessment Total Risk Factor Score: 11 Thrombosis Risk Factor Assessment Level: High Risk Assessment and Plan Plan: Shortness of breath: Most probably secondary to COPD exacerbation. Rule out pulmonary embolism as mentioned above. Patient may have sleep apnea will need sleep study as an outpatient. Patient does have factor V Leyden deficiency #2 obesity #3 benign prostatic hypertrophy #4 factor V Leyden deficiency x-ray #6 gastric esophageal reflux disease For above-mentioned chronic medical problems will continue with home medications.
--- NOTE | 2017-05-30 17:28 | ECHOF ---
Referral Reason:shortness of breath, chest pain MEASUREMENTS -------- HEIGHT: 188.0 cm WEIGHT: 147.4 kg BP: 130/40 RVIDd: 3.5 cm (< 3.3) IVSd: 1.3 cm (0.6 - 1.1) LVIDd: 4.9 cm (3.9 - 5.3) LVPWd: 1.1 cm (0.6 - 1.1) IVSs: 1.4 cm LVIDs: 4.0 cm LVPWs: 1.3 cm Ao Diam: 3.5 cm (2.0 - 3.7) AV Cusp: 2.2 cm (1.5 - 2.6) LA Diam: 3.5 cm (2.7 - 3.8) MV EXCURSION: 18.959 mm (> 18.000) MV EF SLOPE: 87 mm/s (70 - 150) EPSS: 0.5 cm MV E Shaun: 0.70 m/s MV DecT: 199 ms MV A Shaun: 0.91 m/s MV E/A Ratio: 0.77 FINDINGS -------- Sinus rhythm. Morbid Obesity This was a techncally difficult study with suboptimal views, , Definity utilized for enhancement of images. There is mild concentric left ventricular hypertrophy. Overall left ventricular systolic function is normal with, an EF between 55 - 60 %. The right ventricle is normal in size. The left atrial size is normal. The right atrial size is normal. 1.5MG OF DEFINITY UTLIZED: 2 OR MORE WALL SEGMENTS NOT VISUALIZED. There is mild aortic valve sclerosis. There is no evidence of aortic regurgitation. Mild mitral annular calcification present. Mild mitral regurgitation is present. Mild tricuspid regurgitation present. There is no evidence of pulmonary hypertension. There is no pulmonic regurgitation present. The aortic root size is normal. There is no pericardial effusion. CONCLUSIONS -------- 1. Morbid Obesity 2. There is no evidence of pulmonary hypertension. 3. This was a techncally difficult study with suboptimal views, , Definity utilized for enhancement of images. 4. There is mild concentric left ventricular hypertrophy. 5. Overall left ventricular systolic function is normal with, an EF between 55 - 60 %. 6. 1.5MG OF DEFINITY UTLIZED: 2 OR MORE WALL SEGMENTS NOT VISUALIZED. 7. There is mild aortic valve sclerosis. 8. Mild mitral annular calcification present. 9. Mild mitral regurgitation is present. 10. Mild tricuspid regurgitation present. TRAINING GENERALIST: Neris Salomon RDCS
[2017-05-30] MEDS: TAMSULOSIN 0.4 MG CAP.ER.24H PO SCH (18:02)
[2017-05-30] MEDS: PANTOPRAZOLE 40 MG TABLET PO SCH (18:02)
[2017-05-30] MEDS: AZITHROMYCIN 500 MG TAB PO SCH (20:13)
[2017-05-30] MEDS: ALPRAZolam 0.25 MG TAB PO PRN (20:13)
[2017-05-30] MEDS: methylPREDNISolone SOD SUCCI 40 MG/ML 1 ML VIAL IV SCH (20:13)
[2017-05-30] MEDS: SODIUM CHLORIDE 0.9% 1,000 ML IV SCH (20:14)
[2017-05-30] MEDS ORDERED: IBUPROFEN 400 MG TAB PO PRN (21:15)
[2017-05-31] MEDS: IBUPROFEN 800 MG TAB PO PRN (04:31)
[2017-05-31] MEDS: PANTOPRAZOLE 40 MG TABLET PO SCH (06:46)
[2017-05-31] MEDS: IPRATROPIUM-ALBUTEROL 3 ML NEB INHALATION SCH ×4 (09:14→21:39)
[2017-05-31] MEDS: ENOXAPARIN 150 MG/ML SYRINGE SQ SCH (09:18)
[2017-05-31] MEDS: valACYclovir HCL 1,000 MG TABLET PO SCH (09:18)
[2017-05-31] MEDS: MONTELUKAST 10 MG TAB PO SCH (09:18)
[2017-05-31] MEDS: methylPREDNISolone SOD SUCCI 40 MG/ML 1 ML VIAL IV SCH ×2 (09:18→20:47)
[2017-05-31] MEDS: ASPIRIN 81 MG PO SCH (09:18)
--- NOTE | 2017-05-31 11:31 | NM ---
EXAMINATION TYPE: NM pul vent and perfuse DATE OF EXAM: 05/31/2017 COMPARISON: The most recent chest x-ray available for correlation is from 05/29/2017. HISTORY: 61-year-old male elevated d-dimer, factor V Leiden deficiency, shortness of breath, evaluate for PE. TECHNIQUE: Utilizing inhalation of 71.2 mCi Tc 99m DTPA aerosol and intravenous injection of 5.3 mCi of Tc 99m MAA, ventilation and perfusion images are acquired post injection in multiple projections. FINDINGS: Normal radiotracer distribution is noted in the lungs. There is no evidence of mismatched perfusion d efects. Some clumping of tracer within the central airways. IMPRESSION: 1. Very low probability for pulmonary embolus. 2. Some clumping of radiotracer in the central airways can be seen with COPD.
[2017-05-31] MEDS ORDERED: ENOXAPARIN 150 MG/ML SYRINGE SQ SCH (11:56)
[2017-05-31] MEDS ORDERED: FUROSEMIDE 10 MG/ML 4 ML VIAL IV STA (13:06)
--- NOTE | 2017-05-31 13:06 | P.PN ---
Subjective A 61-year-old male patient with known history of bronchial asthma and COPD who presented to the hospital yesterday because of worsening shortness of breath, chest tightness and wheezing and he has failed outpatient treatment. The patient symptoms started approximately 3 weeks ago and he went to a walk-in clinic where he was given diagnosis of pneumonia and he was given a combination of antibiotics and steroids. He improved over her condition progressively got worse and he came into the hospital for the same symptoms of increased dyspnea chest tightness and wheezing. No angina. No pleurisy. No hemoptysis. Some edema in his lower extremities bilaterally. His BNP level was nonelevated. Troponin 2 has been negative. D-dimer was negative. His chest x-ray shows some limited atelectatic changes in the right midlung area and some atelectasis in the left lower lobe area. Cardiac structures were within normal limits. He is feeling better. He is currently on a combination of DuoNeb neb last treatment [id number], oral Zithromax, IV Rocephin. He needs to be started also on IV Solu Medrol. He was given Lovenox therapeutic dose 140 mg subcu every 12 hours. I think this was initiated due to concern of pulmonary embolism. Note that this patient was on Advair in the past. During a recent urgent care visitation the patient was switched to Symbicort. He has pro-air which hardly uses at home. His albuterol neb last 2 minutes use on an as- needed basis. He smokes one pack of cigarette a day and complications 45-pack- year smoking history. He is father of complications of pulmonary fibrosis. No previous history of DVT or pulmonary embolism. No other complaints otherwise for now. On 05/31/2017 the patient is feeling better. The patient is less short of breath. The patient is able to lay down flat in bed. He was unable to fit in the CAT scan machine due to his size and limitation in his left shoulder movement and based on that a VQ scan was ordered. The concern for pulmonary resume his low however based on his previous history of factor V Leyden I think it's reasonable to proceed with a VQ scan. Edema in lower extremities improving. We'll give a dose of Lasix in addition. He is on bronchodilators. He is on systemic steroids. The VQ scan was of a low probability for pulmonary embolism. Doppler of the lower oximetry was negative. Echocardiogram showed a preserved LV function without any significant pulmonary hypertension. Objective - Vital Signs Vital signs: Vital Signs Temp 96.3 F L 05/31/17 08:00 Pulse 76 05/31/17 09:27 Resp 18 05/31/17 08:00 BP 143/73 05/31/17 08:00 Pulse Ox 95 05/31/17 08:00 Intake & Output 05/30/17 05/31/17 05/31/17 18:59 06:59 18:59 Intake Total 320 660 Balance 320 660 Weight 144.8 kg Intake: IV 120 Sodium Chloride 0.9% 1, 120 000 ml @ 20 mls/hr IV . Q24H [facility] Rx#:[id number] Oral 200 660 Other: Voiding Method Toilet Urinal # Voids 2 1 - Exam Head exam was generally normal. There was no scleral icterus or corneal arcus. Mucous membranes were moist. Neck is short and supple and the patient is a Mallampati class IV. No goiter neck masses. Lungs sounds are diminished and there is scattered expiratory wheezes throughout the lung holley bilaterally.Cardiac exam revealed the PMI to be normally situated and sized. The rhythm was regular and no extrasystoles were noted during several minutes of auscultation. The first and second heart sounds were normal and physiologic splitting of the second heart sound was noted. There were no murmurs, rubs, clicks, or gallops. Abdomen soft nontender. No organomegaly. No direct tenderness rebound tensile guarding. Extremities show ankle edema bilaterally otherwise no leg edema. No cyanosis or clubbing at this point. Neurologically is awake 3 and there is no focal neurological deficits. - Labs CBC & Chem 7: 05/29/17 19:00 05/29/17 19:00 Labs: Microbiology - Last 24 Hours (Table) 05/29/17 23:48 Gram Stain - Preliminary Sputum Sputum Culture - Preliminary 05/29/17 19:49 Blood Culture - Preliminary Blood No Growth after 24 hours Assessment and Plan Plan: Assessment 1 dyspnea on the basis of an acute COPD exacerbation. There may be an underlying asthmatic disease in addition. Chest x-ray showing atelectatic changes in the right midlung in the left lower lobe. CT angios was not done as the patient was unable to fit in the CAT scan machine. VQ scan was negative. Doppler of the lower extremity was negative. Echocardiogram does not show any significant pulmonary hypertension. As such we can put the [place] pulmonary embolism and to rest. Presentation is typical of an acute COPD exacerbation the patient is improving. 2 obesity 3 smoker 4 BPH 5 limited edema of the lower extremities. Plan continue DuoNeb nebulized treatments [id number]. Continue Zithromax. 2 and IV Rocephin. IV Solu-Medrol. We'll give a dose of Lasix 40 mg IV push. We 'll continue to follow. He is improving.
--- NOTE | 2017-05-31 13:14 | P.PN ---
Subjective Principal diagnosis: Atypical chest discomfort This is a pleasant 61-year-old gentleman with significant history of smoking and possibly COPD who presented to the hospital was atypical chest discomfort. The patient was ruled out for acute coronary event. The d-dimer was checked and came in to be slightly abnormal but he underwent VQ scan which came in to be unremarkable. I recommended proceeding with a stress test tomorrow morning. Objective - Vital Signs Vital signs: Vital Signs Temp 96.3 F L 05/31/17 08:00 Pulse 76 05/31/17 09:27 Resp 18 05/31/17 08:00 BP 143/73 05/31/17 08:00 Pulse Ox 95 05/31/17 08:00 Intake & Output 05/30/17 05/31/17 05/31/17 18:59 06:59 18:59 Intake Total 320 660 Balance 320 660 Weight 144.8 kg Intake: IV 120 Sodium Chloride 0.9% 1, 120 000 ml @ 20 mls/hr IV . Q24H [facility] Rx#:[id number] Oral 200 660 Other: Voiding Method Toilet Urinal # Voids 2 1 - Constitutional General appearance: Present: no acute distress - Respiratory Respiratory: bilateral: CTA - Cardiovascular Rhythm: regular Heart sounds: normal: S1, S2 - Labs CBC & Chem 7: 05/29/17 19:00 05/29/17 19:00 Labs: Microbiology - Last 24 Hours (Table) 05/29/17 23:48 Gram Stain - Preliminary Sputum Sputum Culture - Preliminary 05/29/17 19:49 Blood Culture - Preliminary Blood No Growth after 24 hours Assessment and Plan Plan: This is a pleasant 61-year-old gentleman who presented to the hospital was atypical chest discomfort. The patient will be scheduled to undergo a Lexiscan Cardiolite tomorrow morning.
--- NOTE | 2017-05-31 14:27 | P.PN ---
Subjective Patient is a 61-year-old pleasant gentleman admitted for shortness of breath possibly has COPD exacerbation.. Patient was ruled out acute coronary syndromes. Patient will go for stress test tomorrow. We also ruled out pulmonary embolism with VQ scan and bilateral lower limb Doppler. Patient has bronchitis I do not believe patient has pneumonia antibiotics will be continued azithromycin and Rocephin will discuss reviewed. And patient will be switched to prophylactic dose of Lovenox Patient at today's feeling much better denied any short of breath, denied any chest pain, nausea, vomiting, dysuria Objective - Vital Signs Vital signs: Vital Signs Temp 96.3 F L 05/31/17 08:00 Pulse 76 05/31/17 13:29 Resp 18 05/31/17 12:00 BP 161/77 05/31/17 12:00 Pulse Ox 92 L 05/31/17 12:00 Intake & Output 05/30/17 05/31/17 05/31/17 18:59 06:59 18:59 Intake Total 320 1110 Balance 320 1110 Weight 144.8 kg Intake: IV 120 450 Sodium Chloride 0.9% 1, 120 450 000 ml @ 20 mls/hr IV . Q24H [facility] Rx#:[id number] Oral 200 660 Other: Voiding Method Toilet Urinal # Voids 2 1 - Exam PHYSICAL EXAMINATION: GENERAL: The patient is alert and oriented x3, not in any acute distress. Well developed, well nourished. HEENT: Pupils are round and equally reacting to light. EOMI. No scleral icterus. No conjunctival pallor. Normocephalic, atraumatic. No pharyngeal erythema. No thyromegaly. CARDIOVASCULAR: S1 and S2 present. No murmurs, rubs, or gallops. PULMONARY: Chest is clear to auscultation, no wheezing or crackles. ABDOMEN: Soft, nontender, nondistended, normoactive bowel sounds. No palpable organomegaly. MUSCULOSKELETAL: No joint swelling or deformity. EXTREMITIES: No cyanosis, clubbing, or pedal edema. NEUROLOGICAL: Gross neurological examination did not reveal any focal deficits. SKIN: No rashes. - Labs CBC & Chem 7: 05/29/17 19:00 05/29/17 19:00 Labs: Microbiology - Last 24 Hours (Table) 05/29/17 23:48 Gram Stain - Preliminary Sputum Sputum Culture - Preliminary 05/29/17 19:49 Blood Culture - Preliminary Blood No Growth after 24 hours Assessment and Plan Plan: Shortness of breath: Most probably secondary to COPD exacerbation. Ruled out pulmonary embolism as mentioned above. Patient may have sleep apnea will need sleep study as an outpatient. Patient does have factor V Leyden deficiency. Patient will go for stress test tomorrow after that patient will be discharged #2 obesity #3 benign prostatic hypertrophy #4 factor V Leyden deficiency x-ray #6 gastric esophageal reflux disease For above-mentioned chronic medical problems will continue with home medications.
[2017-05-31] MEDS: TAMSULOSIN 0.4 MG CAP.ER.24H PO SCH (18:37)
[2017-05-31] MEDS: ALPRAZolam 0.25 MG TAB PO PRN (18:41)
[2017-05-31] MEDS: AZITHROMYCIN 500 MG TAB PO SCH (20:47)
[2017-06-01 00:08] VITALS: RESP 16
[2017-06-01] MEDS: ALPRAZolam 0.25 MG TAB PO PRN (02:10)
[2017-06-01] MEDS: PANTOPRAZOLE 40 MG TABLET PO SCH (06:28)
[2017-06-01] MEDS: IBUPROFEN 800 MG TAB PO PRN (06:51)
[2017-06-01] MEDS: IPRATROPIUM-ALBUTEROL 3 ML NEB INHALATION SCH ×3 (07:03→15:46)
[2017-06-01] MEDS ORDERED: REGADENOSON 0.4 MG/5 ML SYRINGE IV ONE (09:00)
[2017-06-01] MEDS ORDERED: AMINOPHYLLINE 500 MG/20 ML VIAL IV PRN (09:00)
[2017-06-01] MEDS ORDERED: ENOXAPARIN 40 MG/0.4 ML SYRINGE SQ SCH (09:00)
[2017-06-01 09:37] VITALS: TEMP 97.6
[2017-06-01] MEDS ORDERED: DOBUTamine DRIP for NUC MED 500 MG in DEXTROSE/WATER 1 250ML.BAG IV ONE (11:00)
--- NOTE | 2017-06-01 11:23 | CDI ---
In responding to this query, please exercise your independent professional judgment. The [facility] Coding Staff and Clinical Documentation Specialists appreciate your assistance in clarifying documentation, maintaining compliance with coding guidelines, accurately documenting patients condition and capturing severity of illness. The fact that a question is asked does not imply that any particular answer is desired or expected. Communication forms are a method of clarifying documentation and are not made part of the Legal Health Record. Thank you in advance for your clarification. Last Revision, December 2015 Brittney Matute [address] [facility] [place] [address] Documentation Clarification Form Date: 06/01/2017 11:15:00 AM From: Nelda Dennis, CCS, CCDS Admit Date: 05/29/2017 9:20:00 PM Patient Name: Don Velez Visit Number: [id number] Discharge Date: Dr. Viviana Mcmanus: Asthma is documented in the pulmonary consult and also progress notes. Admitted with COPD exacerbation and possible bronchitis. Patient history/risk factors: Asthma, COPD, 45 year+ smoker 1 pdd. Clinical Indicators: Presented with chest discomfort, cough & SOB, recently treated with antibiotics for pneumonia. Radiology: 05/29 CXR: mild infiltrate & atelectasis in RML & LLL, new compared to old exam. Vital Signs: T 97.3*, P 69, R 26^ (sob), BP 191/88, PO 92 2Lnc Treatment: IV antibiotics, IV steroids, O2 2Lnc, Neb txs, Albuterol INH, Stress test, Blood cultures. Consults: Pulmonary, Cardiology In your professional opinion, can you please further specify the asthma diagnosis, if known? With Acute Exacerbation Status asthmaticus Acute lower respiratory infection COPD (specify with or without exacerbation) Chronic obstructive bronchitis Other, please specify Unable to determine Severity Mild intermittent Mild persistent Moderate persistent Severe persistent Other, please specify Unable to determine Form or Type Cough variant Childhood Exercise induced bronchospasm Extrinsic allergic Idiosyncratic Intrinsic nonallergic Late-onset Mixed Other, please specify Unable to determine Please document in your progress notes and discharge summary in order to capture severity of illness and risk of mortality. Include clinical findings that support your diagnosis. FYI: Press F11 to launch patient chart. MTDD
--- NOTE | 2017-06-01 13:26 | ECHOS ---
DATE OF SERVICE: 06/01/2017 TYPE OF REPORT: DOBUTAMINE STRESS ECHOCARDIOGRAM INDICATION: Chest pain. BASELINE HEART RATE: 84 BASELINE BLOOD PRESSURE: 131/92 MAXIMUM HEART RATE: 137 MAXIMUM BLOOD PRESSURE: 190/89 85% MPHR: 136 100% MPHR: 160 METS: - MAXIMUM STAGE REACHED: 3 TOTAL EXERCISE TIME: 7:30 Baseline EKG revealed a normal sinus rhythm without significant ST-T changes. With the Dobutamine administration as per protocol, The heart rate went up progressively up to 137 beats per minute which is 85% of predicted maximal. Patient developed some isolated PVC's. He did not have any significant symptoms of angina. The EKG revealed upsloping nonspecific ST-segment changes not suggestive of ischemia. By EKG criteria this is an unremarkable dobutamine stress test. Baseline echo images revealed normal wall motion and wall thickening of all segments. With the dobutamine administration as per protocol, there was progressive increase in contractility of the left ventricle involving all segments. There is no evidence of stress induced ischemia on this dobutamine echocardiogram. FINAL IMPRESSION: 1. By EKG criteria, this is an unremarkable dobutamine stress test. 2. Normal dobutamine stress echocardiogram. [facility] CENTERChristopher
[2017-06-01] MEDS: ASPIRIN 81 MG PO SCH (13:55)
[2017-06-01] MEDS: MONTELUKAST 10 MG TAB PO SCH (13:56)
[2017-06-01] MEDS: methylPREDNISolone SOD SUCCI 40 MG/ML 1 ML VIAL IV SCH (13:56)
--- NOTE | 2017-06-01 13:59 | P.PN ---
Subjective Principal diagnosis: Acute exacerbation of COPD, and acute tracheobronchitis. A 61-year-old male patient with known history of bronchial asthma and COPD who presented to the hospital yesterday because of worsening shortness of breath, chest tightness and wheezing and he has failed outpatient treatment. The patient symptoms started approximately 3 weeks ago and he went to a walk-in clinic where he was given diagnosis of pneumonia and he was given a combination of antibiotics and steroids. He improved over her condition progressively got worse and he came into the hospital for the same symptoms of increased dyspnea chest tightness and wheezing. No angina. No pleurisy. No hemoptysis. Some edema in his lower extremities bilaterally. His BNP level was nonelevated. Troponin 2 has been negative. D-dimer was negative. His chest x-ray shows some limited atelectatic changes in the right midlung area and some atelectasis in the left lower lobe area. Cardiac structures were within normal limits. He is feeling better. He is currently on a combination of DuoNeb neb last treatment [id number], oral Zithromax, IV Rocephin. He needs to be started also on IV Solu Medrol. He was given Lovenox therapeutic dose 140 mg subcu every 12 hours. I think this was initiated due to concern of pulmonary embolism. Note that this patient was on Advair in the past. During a recent urgent care visitation the patient was switched to Symbicort. He has pro-air which hardly uses at home. His albuterol neb last 2 minutes use on an as- needed basis. He smokes one pack of cigarette a day and complications 45-pack- year smoking history. He is father of complications of pulmonary fibrosis. No previous history of DVT or pulmonary embolism. No other complaints otherwise for now. On 05/31/2017 the patient is feeling better. The patient is less short of breath. The patient is able to lay down flat in bed. He was unable to fit in the CAT scan machine due to his size and limitation in his left shoulder movement and based on that a VQ scan was ordered. The concern for pulmonary resume his low however based on his previous history of factor V Leyden I think it's reasonable to proceed with a VQ scan. Edema in lower extremities improving. We'll give a dose of Lasix in addition. He is on bronchodilators. He is on systemic steroids. The VQ scan was of a low probability for pulmonary embolism. Doppler of the lower oximetry was negative. Echocardiogram showed a preserved LV function without any significant pulmonary hypertension. On 06/01/2017, patient is doing much better, VQ scan and venous Doppler were negative for thromboembolic disease. His echocardiogram was relatively unremarkable, and no evidence of pulmonary hypertension. Clinically the patient has made a dramatic improvement. Patient had a normal dobutamine stress echocardiogram noted today. Unremarkable dobutamine stress test. I believe the patient could be discharged home and follow up on outpatient basis. Objective - Vital Signs Vital signs: Vital Signs Temp 97.6 F 06/01/17 09:30 Pulse 76 06/01/17 11:13 Resp 16 06/01/17 09:30 BP 140/90 06/01/17 09:30 Pulse Ox 94 L 06/01/17 09:30 Intake & Output 05/31/17 06/01/17 06/01/17 18:59 06:59 18:59 Intake Total 1110 0 Output Total 700 Balance 1110 -700 Weight 144.4 kg Intake: IV 450 Sodium Chloride 0.9% 1, 450 000 ml @ 20 mls/hr IV . Q24H [facility] Rx#:[id number] Oral 660 0 Output: Urine 700 Other: Voiding Method Toilet Urinal # Voids 1 - Exam Physical Exam: Revealed a 61-year-old in no distress. HEENT:[Neck is supple.] [No neck masses.] [No thyromegaly.] [No JVD.] Chest: [Clear throughout, no crackles, no rhonchi, no wheezes.] Cardiac Exam: [Normal S1 and S2, no S3 gallop, no murmur.] Abdomen: [Soft, nontender, no megaly, no rebound, no guarding, normal bowel sounds.] Extremities: [No clubbing, no edema, no cyanosis.] Neurological Exam: [No focal neurologic deficit.] - Labs CBC & Chem 7: 05/29/17 19:00 05/29/17 19:00 Labs: Microbiology - Last 24 Hours (Table) 05/29/17 23:48 Gram Stain - Final Sputum Sputum Culture - Final 05/29/17 19:49 Blood Culture - Preliminary Blood No Growth after 48 hours Assessment and Plan Plan: Impression: Acute exacerbation of COPD and tracheobronchitis, strongly doubt pneumonia based on the chest x-ray findings and based on the presentation. Patient was counseled regarding smoking cessation, he will be maintained on his present bronchodilators, prednisone burst and taper, Zithromax, agree with discharge planning today and follow up on outpatient basis. Time with Patient: Less than 30
[2017-06-01] MEDS ORDERED: predniSONE 20 MG TAB PO SCH (14:00)
[2017-06-01 15:27] VITALS: BP 132/79
--- NOTE | 2017-06-01 15:50 | P.PN ---
Subjective Principal diagnosis: Shortness of breath and bilateral leg swelling. This is a 61-year-old gentleman with known history of COPD, asthma, factor V Leiden deficiency, who presented to the hospital with symptoms of progressively worsening shortness of breath with associated bilateral peripheral edema. Echocardiogram with Doppler study was performed which revealed an ejection fraction of 55-60%. Chest x-ray revealed a mild infiltrate and atelectasis in the right middle lobe and left lower lobe new as compared with prior. Venous duplex of the bilateral lower extremities negative for DVT. Dobutamine echo normal. VQ scan very low probability for pulmonary embolism. Blood pressure on arrival here 191/88, respirations 26, 92% on 2 L of oxygen. Patient was given IV diuretics, he states that overall he is feeling much better, he diuresed well from that also. Objective - Vital Signs Vital signs: Vital Signs Temp 97.6 F 06/01/17 09:30 Pulse 84 06/01/17 13:50 Resp 16 06/01/17 13:50 BP 132/79 06/01/17 13:50 Pulse Ox 93 L 06/01/17 13:50 Intake & Output 05/31/17 06/01/17 06/01/17 18:59 06:59 18:59 Intake Total 1110 0 Output Total 700 Balance 1110 -700 Weight 144.4 kg Intake: IV 450 Sodium Chloride 0.9% 1, 450 000 ml @ 20 mls/hr IV . [facility] Rx#:[id number] Oral 660 0 Output: Urine 700 Other: Voiding Method Toilet Urinal # Voids 1 3 - Exam PHYSICAL EXAMINATION: HEENT: Head is atraumatic, normocephalic. Pupils equal, round. Neck is supple. There is no elevated jugular venous pressure. HEART EXAMINATION: Heart S1, S2 normal. No murmur or gallop heard. CHEST EXAMINATION: Lungs are clear to auscultation and precussion. No chest wall tenderness is noted on palpation or with deep breathing. ABDOMEN: Soft, nontender. Bowel sounds are heard. No organomegaly noted. EXTREMITIES: 2+ peripheral pulses with no evidence of peripheral edema and no calf tenderness noted. NEUROLOGIC patient is awake, alert and oriented -3. . - Labs CBC & Chem 7: 05/29/17 19:00 05/29/17 19:00 Labs: Microbiology - Last 24 Hours (Table) 05/29/17 23:48 Gram Stain - Final Sputum Sputum Culture - Final 05/29/17 19:49 Blood Culture - Preliminary Blood No Growth after 48 hours Assessment and Plan (1) SOB (shortness of breath) Status: Acute (2) Factor 5 Leiden mutation, heterozygous Status: Acute (3) Treadmill stress test negative for angina pectoris Status: Acute (4) HTN (hypertension) Status: Acute Plan: From cardiology's perspective, we will put the patient on a small dose of lisinopril along with hydrochlorothiazide. Follow-up appointment will be made with Dr. Villavicencio in the office post discharge. DNP note has been reviewed, I agree with a documented findings and plan of care. Patient was seen and examined.
[2017-06-01 15:58] VITALS: PULSE 76
[2017-06-01] MEDS ORDERED: LISINOPRIL-HCTZ 10-12.5 MG 1 EACH TAB PO SCH (16:00)
--- NOTE | 2017-06-03 00:59 | P.DS ---
Providers Date of admission: 05/29/17 21:20 Expected date of discharge: 06/01/17 Attending physician: Carol Rucker Consults: 05/29/17 21:20 Consult Physician Routine Consulting Provider: Jerome Teran Consult Reason/Comments: your patient. COPD with infiltrate. Do you want consulting provider notified?: Yes 05/29/17 22:44 Consult Physician Routine Consulting Provider: Antoinette Jasmine Consult Reason/Comments: chest pain Do you want consulting provider notified?: Yes, Notify in am Primary care physician: Jerome Teran [facility] Course: Discharge diagnosis #1 Shortness of breath: Most probably secondary to COPD exacerbation. Ruled out pulmonary embolism as mentioned above. Patient may have sleep apnea will need sleep study as an outpatient. Patient does have factor V Leyden deficiency. Stress test negative. VQ scan showed low probability for PE. #2 obesity #3 benign prostatic hypertrophy #4 factor V Leyden deficiency x-ray #6 gastric esophageal reflux disease Patient is a 61-year-old pleasant gentleman admitted for shortness of breath due to COPD exacerbation.. Patient was ruled out acute coronary syndromes. Patient was continued on continued azithromycin and Rocephin . Chest x-ray showed no pneumonia. Ceftriaxone was discontinued. VQ scan showed low probably for PE and Lovenox has been discontinued and changed to prophylactic dose. Patient did improve with breathing treatments and antibiotics and continued on penicillin 20 mg daily. Patient was seen with pulmonary and recommended to continue the current management and follow up in the clinic. Patient at today's feeling much better denied any short of breath, denied any chest pain, nausea, vomiting, dysuria. Patient was discharged home in stable condition. Patient Condition at Discharge: Stable Plan - Discharge Summary New Discharge Prescriptions: New Lisinopril-Hctz 10-12.5 mg [Zestoretic 10-12.5] 1 each PO DAILY #30 tab Azithromycin [Zithromax] 500 mg PO HS #3 tab Continue valACYclovir HCL [valACYclovir] 1,000 mg PO DAILY Tamsulosin HCl 0.4 mg PO DAILY@1800 Montelukast [Singulair] 10 mg PO DAILY Ipratropium-Albuterol Nebulize [Duoneb 0.5 mg-3 mg/3 ml Soln] 3 ml INHALATION RT-Q4H PRN PRN Reason: Shortness Of Breath Aspirin EC [Ecotrin Low Dose] 81 mg PO DAILY Budesonide/Formoterol Fumarate [Symbicort 160-4.5 Mcg Inhaler] 2 puff INHALATION RT-BID Changed predniSONE 20 mg PO DAILY #5 Discontinued Ibuprofen [Motrin] 800 mg PO Q6HR PRN PRN Reason: Pain Discharge Medication List Tamsulosin HCl 0.4 mg PO DAILY@1800 06/25/14 [History] valACYclovir HCL [valACYclovir] 1,000 mg PO DAILY 06/25/14 [History] Aspirin EC [Ecotrin Low Dose] 81 mg PO DAILY 05/29/17 [History] Budesonide/Formoterol Fumarate [Symbicort 160-4.5 Mcg Inhaler] 2 puff INHALATION RT-BID 05/29/17 [History] Ipratropium-Albuterol Nebulize [Duoneb 0.5 mg-3 mg/3 ml Soln] 3 ml INHALATION RT -Q4H PRN 05/29/17 [History] Montelukast [Singulair] 10 mg PO DAILY 05/29/17 [History] Azithromycin [Zithromax] 500 mg PO HS #3 tab 06/01/17 [Rx] Lisinopril-Hctz 10-12.5 mg [Zestoretic 10-12.5] 1 each PO DAILY #30 tab [Rx] predniSONE 20 mg PO DAILY #5 06/01/17 [Rx] Follow up Appointment(s)/Referral(s): Jerome Teran MD [Primary Care Provider] - 1-2 days (Office closed, pt to call & schedule appointment) Mariusz Cunningham MD [STAFF PHYSICIAN] - 06/15/17 3:00 pm Patient Instructions/Handouts: Angina (DC), COPD (Chronic Obstructive Pulmonary Disease) (DC), Stress Echocardiogram (DC) Discharge Disposition: HOME SELF-CARE
--- NOTE | 2017-06-24 09:42 | P.PN ---
Progress Note - Text Patient has COPD as documented in my dictation. He may have an underlying childhood asthma which is currently inactive and stable. Please make these adjustments.
== END 2017-06-01 17:23 | disposition home or self-care (01) | DRG 191 ==
LOC: EC 18:52 → 6SEL 21:20
PROVIDERS: ADMIT Hospitalist; ATTEND Hospitalist
PROC: 4A02XM4 Measurement of Cardiac Total Activity, External Approach (ICD-10-PCS; principal; 2017-06-01)
PROC: 3E073KZ Introduction of Other Diagnostic Substance into Coronary Artery, Percutaneous Approach (ICD-10-PCS; 2017-06-01)
PROC: B245ZZZ Ultrasonography of Left Heart (ICD-10-PCS; 2017-06-01)
DX: J44.1 Chronic obstructive pulmonary disease with (acute) exacerbation (principal); D68.2 Hereditary deficiency of other clotting factors; I10 Essential (primary) hypertension; R07.89 Other chest pain; G47.30 Sleep apnea, unspecified; J44.0 Chronic obstructive pulmonary disease with (acute) lower respiratory infection; J20.9 Acute bronchitis, unspecified; N40.0 Benign prostatic hyperplasia without lower urinary tract symptoms; R60.0 Localized edema; R00.0 Tachycardia, unspecified; R61 Generalized hyperhidrosis; E66.9 Obesity, unspecified; K21.9 Gastro-esophageal reflux disease without esophagitis; F10.10 Alcohol abuse, uncomplicated; F17.210 Nicotine dependence, cigarettes, uncomplicated; Z87.01 Personal history of pneumonia (recurrent); Z82.49 Family history of ischemic heart disease and other diseases of the circulatory system; Z79.899 Other long term (current) drug therapy; Z79.51 Long term (current) use of inhaled steroids; Z91.030 Bee allergy status; Z71.6 Tobacco abuse counseling; Z86.59 Personal history of other mental and behavioral disorders; Z83.6 Family history of other diseases of the respiratory system; Z79.52 Long term (current) use of systemic steroids; Z79.1 Long term (current) use of non-steroidal anti-inflammatories (NSAID); Z79.82 Long term (current) use of aspirin; Z87.09 Personal history of other diseases of the respiratory system
CPT/HCPCS: 36415; 71020; 78582; 80053; 83735; 83880; 84484; 85025; 85379; 85610; 85730; 87040; 87070; 87205; 87324; 93005; 93017; 93306; 93350; 93970; 94640; 94760; 96365; 96367; 96372; 99291

== ENCOUNTER → 2018-06-28 | Outpatient (CLI) | payer MEDICAID ==
--- NOTE | 2018-06-29 08:06 | US ---
EXAMINATION TYPE: US carotid duplex BILAT DATE OF EXAM: 06/28/2018 COMPARISON: NONE CLINICAL HISTORY: R09.89 Carotid Bruit. No HTN or high cholesterol. EXAM MEASUREMENTS: RIGHT: Peak Systolic Velocity (PSV) cm/sec ----- Right CCA: 66.0 ----- Right ICA: 58.4 ----- Right ECA: 123.7 ICA/CCA ratio: 0.9 RIGHT: End Diastole cm/sec ----- Right CCA: 21.5 ----- Right ICA: 24.3 ----- Right ECA: 25.4 LEFT: Peak Systolic Velocity (PSV) cm/sec ----- Left CCA: 79.0 ----- Left ICA: 79.9 ----- Left ECA: 112.1 ICA/CCA ratio: 1.0 LEFT: End Diastole cm/sec ----- Left CCA: 24.1 ----- Left ICA: 38.0 ----- Left ECA: 25.4 VERTEBRALS (direction of flow): Right Vertebral: Antegrade Left Vertebral: Antegrade Rhythm: Normal No wall thickening. No significant stenosis. No elevated velocities. Plaque seen in posterior righ t bulb near proximal ICA. IMPRESSION: 1. Atherosclerotic plaque with no significant hemodynamic stenosis bilaterally. Criteria for Assigning % of Stenosis / Diameter reduction (Estimation based on the indirect measurements of the internal carotid artery velocities (ICA PSV). 1. Normal (no stenosis)=ICA PSV < 125 cm/s: ratio < 2.0: ICA EDV<40 cm/s. 2. Less than 50% stenosis=ICA PSV < 125 cm/s: ratio < 2.0: ICA EDV<40 cm/s. 3. 50 to 69% stenosis=ICA PSV of 125 to 230 cm/s: ration 2.0 ? 4.0: ICA EDV 40-100 cm/s. 4. Greater than 70% stenosis to near occlusion= ICA PSV > 230 cm/s: ratio > 4.0: ICA EDV > 100 cm/s. 5. Near occlusion= ICA PSV velocities may be low or undetectable: variable ratio and ICA EDV. 6. Total occlusion=unable to detect flow.
== END | disposition home or self-care (01) ==
LOC: RADUSWWP 15:26
PROVIDERS: ATTEND Internal Medicine Interventional Cardiology
DX: I65.23 Occlusion and stenosis of bilateral carotid arteries (principal)
CPT/HCPCS: 93880

== ENCOUNTER → 2019-01-18 | Outpatient (CLI) | payer MEDICAID ==
[2019-01-18 07:27] LABS: Basophils # (A) 0.1 k/uL (0-0.2); Basophils % (A) 1 %; Eosinophils # (A) 0.3 k/uL (0-0.7); Eosinophils % (A) 2 %; HCT 48.8 % (39.0-53.0); HGB 15.5 gm/dL (13.0-17.5); Lymphocytes # (A) 3.3 k/uL (1.0-4.8); Lymphocytes % (A) 23 %; MCH 32.7 pg (25.0-35.0); MCHC 31.8 g/dL (31.0-37.0); MCV 103.1 fL (80.0-100.0); Macrocytosis Slight; Mean Platelet Volume 7.9; Monocytes # (A) 1.2 k/uL (0-1.0); Monocytes % (A) 8 %; Neutrophils # (A) 9.3 k/uL (1.3-7.7); Neutrophils % (A) 64 %; Platelet Count 237 k/uL (150-450); RBC 4.73 m/uL (4.30-5.90); RDW 13.7 % (11.5-15.5); WBC 14.5 k/uL (3.8-10.6)
[2019-01-18 16:32] LABS: T4, Free (Free Thyroxine) 1.3 ng/dL (0.80-1.80)
[2019-01-18 17:04] LABS: Albumin 4.3 g/dL (3.80-4.90); Albumin/Globulin Ratio 1.95 (1.60-3.17); Anion Gap 5.5 mmol/L (4.00-12.00); Calcium 9.1 mg/dL (8.7-10.3); Carbon Dioxide 26.5 mmol/L (21.6-31.8); Globulin 2.2 g/dL (1.6-3.3); Total Bilirubin 0.4 mg/dL (0.3-1.2); Total Protein 6.5 g/dL (6.2-8.2)
== END | disposition home or self-care (01) ==
LOC: LABWHC1 07:00
PROVIDERS: ATTEND Internal Medicine
DX: Z00.00 Encounter for general adult medical examination without abnormal findings (principal)
CPT/HCPCS: 86803; 84439; 80061; 80053; 84443; 85025; 36415; G0103

== ENCOUNTER → 2019-05-26 | Outpatient (CLI) | payer MEDICAID ==
[2019-05-26 12:59] LABS: Anion Gap 5.4 mmol/L (4.00-12.00); BUN/Creat Ratio 12.5 Ratio (12.00-20.00); Calcium 9.4 mg/dL (8.7-10.3); Carbon Dioxide 32.6 mmol/L (21.6-31.8)
== END | disposition home or self-care (01) ==
LOC: LABWHC1 07:08
PROVIDERS: ATTEND Nurse Practitioner Adult Health
DX: I10 Essential (primary) hypertension (principal)
CPT/HCPCS: 36415; 80048; 83735

== ENCOUNTER → 2019-10-05 | Outpatient (CLI) | payer MEDICAID ==
--- NOTE | 2019-10-05 09:35 | CT ---
EXAMINATION TYPE: CT soft tissue neck wo con DATE OF EXAM: 10/05/2019 COMPARISON: 06/25/2014 CT cervical spine HISTORY: Dysphagia CT DLP: 761.3 mGycm CONTRAST: Patient injected with 0 mL of Isovue 300. TECHNIQUE: Axial images at 3 mm thick sections. Reconstructed images in the coronal plane and sagitt al plane are reviewed. FINDINGS: Limited CT sections are obtained the lung apices. The lung apices appear clear. There is a small air collection with a septation lateral to the esophagus and posterior to the trache a. This is near the lung apex. A small bulla could be considered. However, this is somewhat separate from the medial lung apex. Tracheal diverticulum could be present. This does not appear typical for f ree air within the mediastinum. Series 3 image 31. In retrospect this appears to have been present o n the 06/25/[address] neck: The torus tubarius and fossa of Rosenmuller are normal. Chief Operator Synthesis spaces are normal. Para nasal sinuses and mastoid air cells are clear. Parotid glands appear normal and symmetrical. Submandibular glands, are normal. Parapharyngeal spac es are normal. No suspicious adenopathy is evident. The hypopharynx appears within normal limits. Vocal cord level appear symmetrical. Thyroid as visualized is normal. Facet degenerative changes are noted within the cervical spine. Mastoid air cells are clear. IMPRESSIONS: 1. No acute abnormalities soft tissue neck. 2. Small air collection lateral to the esophagus at the thoracic inlet, likely present in 2013.
== END | disposition home or self-care (01) ==
LOC: RADCTMAIN 07:36
PROVIDERS: ATTEND Internal Medicine
DX: R13.10 Dysphagia, unspecified (principal)
CPT/HCPCS: 70490

== ENCOUNTER → 2019-10-14 | Outpatient (CLI) | payer MEDICAID ==
--- NOTE | 2019-10-14 08:34 | CTL ---
EXAMINATION TYPE: CT Low Dose Lung DATE OF EXAM ORDERED: 10/14/2019 COMPARISON: None HISTORY: . Low Dose CT Lung Screening IV CONTRAST USED: None. SCREENING VISIT: First visit COMPARISON: None. TECHNIQUE: Low dose computed tomography scan was performed through the chest at 1 millimeter thick se ctions and reconstructed images in the coronal plane at [address] DIAGNOSTIC QUALITY: Poor quality given streak artifact. FINDINGS: LUNG NODULES: Not presentLeft lung: no nodules identified.Right lung: no nodules identified. Basilar atelectasis and/or parenchymal scarring noted bilaterally right greater than left. LUNGS: COPD: Severity: None Fibrosis: Severity:None Lymph nodes: None Other findings: None RIGHT PLEURAL SPACE: Effusion: None Calcification: None Thickening: None Pneumothorax: None LEFT PLEURAL SPACE: Effusion: None Calcification: None Thickening: None Pneumothorax: None HEART: Heart Size: Mildly enlarged Coronary calcification: Mild Pericardial effusion: None OTHER FINDINGS: Upper abdomen: No significant abnormality Bony thorax: Degenerative changes Supraclavicular region: No significant abnormalityOther: No significant abnormalityI IMPRESSION: No concerning pulmonary nodule or mass. FOLLOW UP CT CHEST RECOMMENDATION: Follow-up screening in one year CT LUNG RAD: LUNG RAD CATEGORY 1 negative
== END | disposition home or self-care (01) ==
LOC: RADCTMAIN 07:32
PROVIDERS: ATTEND Internal Medicine
DX: Z12.2 Encounter for screening for malignant neoplasm of respiratory organs (principal); F17.210 Nicotine dependence, cigarettes, uncomplicated

== ENCOUNTER → 2019-12-01 | Outpatient (CLI) | payer MEDICAID ==
[2019-12-01 12:38] LABS: T4, Free (Free Thyroxine) 1.6 ng/dL (0.80-1.80)
== END | disposition home or self-care (01) ==
LOC: LABWHC1 06:51
PROVIDERS: ATTEND Internal Medicine Interventional Cardiology
DX: E03.9 Hypothyroidism, unspecified (principal)
CPT/HCPCS: 36415; 84439; 84443

== ENCOUNTER → 2020-05-09 | Outpatient (CLI) | payer MEDICAID ==
--- NOTE | 2020-05-09 12:16 | CT ---
EXAMINATION TYPE: CT chest wo con DATE OF EXAM: 05/09/2020 COMPARISON: 02/09/2014 HISTORY: difficulty breathing, CT DLP: 2141.1 mGycm. Automated Exposure Control for Dose Reduction was Utilized. TECHNIQUE: CT scan of the thorax is performed without IV contrast. FINDINGS: LUNGS: Subsegmental areas of consolidation are noted. Correlate for atelectasis. Findings are noted b ilaterally pneumonia felt less likely. Minimal interlobular septal thickening involving the lung bases stable from prior exam. No pneumothor ax. No sizable pleural effusion. There is a 1 mm subpleural nodule within the left lower lobe which h as a benign appearance. Axial image 27 prone position.. MEDIASTINUM: Lack of IV contrast is noted to limit evaluation for mediastinal and especially hilar ad enopathy. There are no definitive greater than 1 cm hilar or mediastinal lymph nodes. Heart size norm al. Atherosclerotic change aorta. Minimal coronary artery calcification. Incidental note made of gyne comastia.. OTHER: Degenerative changes. Severe artifact limits assessment of the abdomen. IMPRESSION: 1. Stable minimal interlobular septal thickening. No significant changes of interstitial lung disease . 2. Bilateral subsegmental areas of consolidation and atelectasis favored over pneumonia. Correlate cl inically
== END | disposition home or self-care (01) ==
LOC: RADCTMAIN 05-05 13:58
PROVIDERS: ATTEND Internal Medicine
DX: J18.9 Pneumonia, unspecified organism (principal); J84.89 Other specified interstitial pulmonary diseases
CPT/HCPCS: 71250

== ENCOUNTER → 2020-05-23 | Outpatient (CLI) | payer MEDICAID ==
[2020-05-23 10:25] LABS: ABG Base Excess 7.8 mmol/L; ABG HCO3 31 mmol/L (21-25); ABG Oxygen Saturation 91.7 % (94-97); ABG PCO2 40 mmHg (35-45); ABG TCO2 32 mmol/L (19-24); Allen Test Performed? Yes
[2020-05-23 10:30] LABS: ABG PO2 58 mmHg (83-108)
== END | disposition home or self-care (01) ==
LOC: LABWHC1 09:45
PROVIDERS: ATTEND Internal Medicine
DX: J44.9 Chronic obstructive pulmonary disease, unspecified (principal)
CPT/HCPCS: 36600; 82805

== ENCOUNTER → 2020-07-20 | Outpatient (CLI) | payer MEDICAID | END | disposition home or self-care (01) | LOC: LABWHC1 14:49 | PROVIDERS: ATTEND Urology | DX: N40.1 Benign prostatic hyperplasia with lower urinary tract symptoms (principal); R35.1 Nocturia | CPT/HCPCS: 36415; 84153 ==

== ENCOUNTER → 2021-02-13 | Outpatient (CLI) | payer MEDICAID ==
[2021-02-13 11:07] LABS: HCT 44.9 % (39.6-50.0); MCH 34.2 pg (27.0-32.0); MCHC 33.4 g/dL (32.0-37.0); MCV 102.5 fL (80.0-97.0); Mean Platelet Volume 11.4 fL (9.5-12.2); Platelet Count 280 X 10*3/uL (140-440); RBC 4.38 X 10*6/uL (4.40-5.60); RDW 14.2 % (11.5-14.5); WBC 17.33 X 10*3/uL (4.50-10.00)
[2021-02-13 12:47] LABS: Basophils # (A) 0.09 X 10*3/uL (0.00-0.10); Basophils % (A) 0.5 %; Eosinophils % (A) 0.6 %; Lymphocytes # (A) 3.06 X 10*3/uL (0.90-5.00); Lymphocytes % (A) 17.7 %; Monocytes # (A) 1.59 X 10*3/uL (0.20-1.00); Monocytes % (A) 9.2 %; Neutrophils # (A) 12.39 X 10*3/uL (1.80-7.70); Neutrophils % (A) 71.4 %
[2021-02-13 13:22] LABS: African American GFR (CKD) 115.6 (60.0-200.0); Albumin 4.5 g/dL (3.80-4.90); Albumin/Globulin Ratio 1.96 (1.60-3.17); Anion Gap 11.7 mmol/L (4.00-12.00); BUN/Creat Ratio 24.29 Ratio (12.00-20.00); Calcium 9.6 mg/dL (8.7-10.3); Carbon Dioxide 30.3 mmol/L (21.6-31.8); Chol/HDL Ratio 3.06; Globulin 2.3 g/dL (1.6-3.3); LDL Cholesterol,Calculated 118.2 mg/dL (0.0-131.0); Non-African American GFR(CKD) 99.7 (60.0-200.0); Potassium 4.5 mmol/L (3.5-5.5); Total Bilirubin 0.5 mg/dL (0.2-1.2); Total Protein 6.8 g/dL (6.2-8.2); VLDL Calculation 17.8 mg/dL (5.00-40.00)
[2021-02-13 13:32] LABS: T4, Free (Free Thyroxine) 1.3 ng/dL (0.80-1.80)
== END | disposition home or self-care (01) ==
LOC: LABWHC1 07:10
PROVIDERS: ATTEND Internal Medicine
DX: Z00.00 Encounter for general adult medical examination without abnormal findings (principal); E78.5 Hyperlipidemia, unspecified
CPT/HCPCS: 36415; 80053; 80061; 84439; 84443; 85025

== ENCOUNTER → 2022-02-19 | Outpatient (CLI) | payer MEDICAID ==
[2022-02-19 22:47] LABS: HCT 46.7 % (39.6-50.0); MCH 34.6 pg (27.0-32.0); MCHC 32.1 g/dL (32.0-37.0); MCV 107.6 fL (80.0-97.0); Mean Platelet Volume 12.5 fL (9.5-12.2); NRBC Per 100 WBC 0 /100 WBCS (0.0-0.0); Platelet Count 240 X 10*3/uL (140-440); RBC 4.34 X 10*6/uL (4.40-5.60); RDW 13.9 % (11.5-14.5)
[2022-02-19 23:23] LABS: ALT 31 U/L (10-49); AST 46 U/L (14-35); African American GFR (CKD) 124.6 (60.0-200.0); Alkaline Phosphatase 41 U/L (41-126); BUN/Creat Ratio 6.84 Ratio (12.00-20.00); Blood Urea Nitrogen 3.9 mg/dL (9.0-27.0); Calcium 9.1 mg/dL (8.7-10.3); Carbon Dioxide 32.4 mmol/L (20.0-27.5); Chloride 95 mmol/L (96-109); Chol/HDL Ratio 5.51 Ratio; Globulin 3.3 g/dL (1.6-3.3); Glucose 124 mg/dL (70-110); LDL Cholesterol,Calculated 126.9 mg/dL (0.0-131.0); Magnesium 2.2 mg/dL (1.5-2.4); Non-African American GFR(CKD) 107.5 (60.0-200.0); Potassium 3.8 mmol/L (3.5-5.5); Sodium 138 mmol/L (135-145); Total Protein 7.3 g/dL (6.2-8.2)
--- NOTE | 2022-02-20 10:32 | CA ---
Transthoracic Echo Report Name: Don Velez Age: 66 Gender: M : 1955 Exam Date: 02/19/2022 14:07 Exam Location: [facility] Ht (in): 79 Wt (lb): 400 Ordering Physician: Mariusz Cunningham MD ([id number]) Attending/Referring Phys: Optical Dispenser Jacki Wheeler RDCS Procedure CPT: Indications: R00.0 Cardiac Hx: Technical Quality: Fair Contrast 1: Total Dose (mL): Contrast 2: Total Dose (mL): MEASUREMENTS (Male / Female) Normal Values 2D ECHO LV Diastolic Diameter PLAX 4.3 cm 4.2 - 5.9 / 3.9 - 5.3 cm LV Systolic Diameter PLAX 3.1 cm IVS Diastolic Thickness 1.4 cm 0.6 - 1.0 / 0.6 - 0.9 cm LVPW Diastolic Thickness 1.5 cm 0.6 - 1.0 / 0.6 - 0.9 cm LV Relative Wall Thickness 0.7 RV Internal Dim ED PLAX 3.9 cm LA Systolic Diameter LX 3.5 cm 3.0 - 4.0 / 2.7 - 3.8 cm M-MODE Aortic Root Diameter MM 3.5 cm MV E Point Septal Separation 1.1 cm AV Cusp Separation MM 2.4 cm DOPPLER AV Peak Velocity 134.4 cm/s AV Peak Gradient 7.2 mmHg MV Area PHT 3.4 cm??? Mitral E Point Velocity 77.8 cm/s Mitral A Point Velocity 71.8 cm/s Mitral E to A Ratio 1.1 MV Deceleration Time 224.5 ms MV E' Velocity 6.3 cm/s Mitral E to MV E' Ratio 12.4 TR Peak Velocity 229.3 cm/s TR Peak Gradient 21.0 mmHg Right Ventricular Systolic Press 26.0 mmHg FINDINGS Left Ventricle Left ventricular ejection fraction is estimated at 55-60 %. Normal Left ventricular size, wall thickness, systolic function with no obvious regional wall motion abnormalities. Normal Left ventriclemoderate concentric left ventricular hypertrophy. Right Ventricle Moderate right ventricular dilatation. Right ventricular systolic pressure within normal limits. Right Atrium Normal right atrial size. Left Atrium Normal left atrial size. No evidence for an atrial septal defect. Mitral Valve Structurally normal mitral valve. Aortic Valve Trileaflet aortic valve. Tricuspid Valve Structurally normal tricuspid valve. Trace to mild tricuspid regurgitation. Pulmonic Valve Pulmonic valve not well visualized. Pericardium Normal pericardium. Aorta Normal size aortic root and proximal ascending aorta. CONCLUSIONS Normal LV size with normal LV systolic function and septal bounce RV enlargement with increased trabeculation Previewed by: Dr. Víctor Tony MD (Electronically Signed) Final Date: 20 Feb 2022 10:31
== END | disposition home or self-care (01) ==
LOC: RADECHMAIN 13:58
PROVIDERS: ATTEND Internal Medicine Interventional Cardiology
DX: I10 Essential (primary) hypertension (principal); R00.0 Tachycardia, unspecified; E78.5 Hyperlipidemia, unspecified; R06.02 Shortness of breath
CPT/HCPCS: 36415; 80053; 80061; 83735; 84443; 85027; 93306

== ENCOUNTER → 2024-10-27 | Outpatient (CLI) | payer MEDICAID ==
[2024-10-27 10:44] LABS: Basophils # (A) 0.08 X 10*3/uL (0.00-0.10); Basophils % (A) 0.8 %; Eosinophils # (A) 0.23 X 10*3/uL (0.04-0.35); Eosinophils % (A) 2.3 %; HCT 46.9 % (39.6-50.0); HGB 15.4 g/dL (13.0-17.0); Lymphocytes # (A) 2.13 X 10*3/uL (0.90-5.00); Lymphocytes % (A) 20.9 %; MCH 32.4 pg (27.0-32.0); MCHC 32.8 g/dL (32.0-37.0); MCV 98.5 FL (80.0-97.0); Mean Platelet Volume 12.3 FL (9.5-12.2); Monocytes # (A) 0.87 X 10*3/uL (0.20-1.00); Monocytes % (A) 8.5 %; NRBC Per 100 WBC 0 X 10*3/uL (0.00-0.01); Neutrophils # (A) 6.88 X 10*3/uL (1.80-7.70); Neutrophils % (A) 67.3 %; Platelet Count 157 X 10*3/uL (140-440); RBC 4.76 X 10*6/uL (4.40-5.60); RDW 13.8 % (11.5-14.5); WBC 10.21 X 10*3/uL (4.50-10.00)
[2024-10-27 11:25] LABS: Chol/HDL Ratio 4.58 Ratio; LDL Cholesterol,Calculated 103.8 mg/dL (0.0-131.0)
[2024-10-27 11:26] LABS: ALT 22 U/L (10-49); AST 26 U/L (14-35); Albumin 4.2 g/dL (3.8-4.9); Alkaline Phosphatase 47 U/L (41-126); BUN/Creat Ratio 18.86 Ratio (12.00-20.00); Blood Urea Nitrogen 13.2 mg/dL (9.0-27.0); Calcium 9.6 mg/dL (8.7-10.3); Carbon Dioxide 27.4 mmol/L (21.6-31.8); Chloride 101 mmol/L (96-109); Glucose 130 mg/dL (70-110); Potassium 4.5 mmol/L (3.5-5.5); Sodium 140 mmol/L (135-145); T4, Free (Free Thyroxine) 1.38 ng/dL (0.80-1.80); Total Bilirubin 0.5 mg/dL (0.3-1.2); Total Protein 7.2 g/dL (6.2-8.2)
== END | disposition home or self-care (01) ==
LOC: LABWHC1 07:07
PROVIDERS: ATTEND Internal Medicine
DX: E78.5 Hyperlipidemia, unspecified (principal)
CPT/HCPCS: 36415; 80053; 80061; 82306; 84439; 84443; 85025

== ENCOUNTER → 2025-04-05 | Outpatient (CLI) | payer MEDICAID ==
[2025-04-05 10:20] LABS: Basophils # (A) 0.09 X 10*3/uL (0.00-0.10); Eosinophils # (A) 0.44 X 10*3/uL (0.04-0.35); Eosinophils % (A) 4.7 %; HCT 46.5 % (39.6-50.0); HGB 15.3 g/dL (13.0-17.0); Lymphocytes # (A) 2.33 X 10*3/uL (0.90-5.00); MCH 32.6 pg (27.0-32.0); MCHC 32.9 g/dL (32.0-37.0); MCV 98.9 FL (80.0-97.0); Mean Platelet Volume 12.7 FL (9.5-12.2); Monocytes # (A) 0.86 X 10*3/uL (0.20-1.00); Monocytes % (A) 9.2 %; NRBC Per 100 WBC 0 X 10*3/uL (0.00-0.01); Neutrophils # (A) 5.59 X 10*3/uL (1.80-7.70); Neutrophils % (A) 59.9 %; Platelet Count 198 X 10*3/uL (140-440); RDW 13.7 % (11.5-14.5); WBC 9.33 X 10*3/uL (4.50-10.00)
[2025-04-05 10:38] LABS: ALT 24 U/L (10-49); AST 27 U/L (14-35); Albumin 4.2 g/dL (3.8-4.9); Alkaline Phosphatase 38 U/L (41-126); Blood Urea Nitrogen 15.6 mg/dL (9.0-27.0); Calcium 9.2 mg/dL (8.7-10.3); Carbon Dioxide 27.3 mmol/L (21.6-31.8); Chloride 103 mmol/L (96-109); Globulin 2.8 g/dL (1.6-3.3); Glucose 126 mg/dL (70-110); Potassium 4.3 mmol/L (3.5-5.5); Sodium 141 mmol/L (135-145); Total Bilirubin 0.3 mg/dL (0.3-1.2)
== END | disposition home or self-care (01) ==
LOC: LABWHC1 06:55
PROVIDERS: ATTEND Nurse Practitioner Acute Care
DX: E66.9 Obesity, unspecified (principal)
CPT/HCPCS: 36415; 80053; 83036; 85025